=== PATIENT | male | born 1975 | race Caucasian/White ===

== ENCOUNTER 2024-11-25 16:34 | Outpatient (CLI) | payer BC, SELFPAY | END 2024-11-25 16:35 | disposition home or self-care (01) | LOC: NFLDREF 11-27 02:36 | PROVIDERS: PCP Physician Assistant Medical; Referring Provider Physician Assistant Medical; Visit Provider Family Medicine | DX: I10 Essential (primary) hypertension (principal); E11.9 Type 2 diabetes mellitus without complications; K21.00 Gastro-esophageal reflux disease with esophagitis, without bleeding | CPT/HCPCS: 82043; 82570 ==

== ENCOUNTER 2025-05-12 09:04 | Outpatient (CLI) | payer BC, SELFPAY | END 2025-05-12 09:05 | disposition home or self-care (01) | LOC: NFLDREF 05-16 16:08 | PROVIDERS: PCP Family Medicine; Referring Provider Physician Assistant Medical; Visit Provider Family Medicine | DX: E11.9 Type 2 diabetes mellitus without complications (principal); I10 Essential (primary) hypertension; Z12.5 Encounter for screening for malignant neoplasm of prostate | CPT/HCPCS: 80053; 80061; G0103 ==